=== PATIENT | female | born 1990 ===

== ENCOUNTER 2019-10-19 17:14 | Emergency (ER) | payer SELFPAY ==
[2019-10-19] MEDS ORDERED: Acetaminophen 500 MG TAB ONE (17:23)
== END 2019-10-19 18:29 | disposition short-term general hospital (02) ==
LOC: ERS 17:14
DX: O99.511 Diseases of the respiratory system complicating pregnancy, first trimester (principal); J11.1 Influenza due to unidentified influenza virus with other respiratory manifestations; O99.341 Other mental disorders complicating pregnancy, first trimester; F41.9 Anxiety disorder, unspecified; Z3A.01 Less than 8 weeks gestation of pregnancy
CPT/HCPCS: 87804; 99283